=== PATIENT | female | born 1970 | race Caucasian/White ===

== ENCOUNTER 2023-11-26 14:19 | Outpatient (AMB) | payer MEDICARE, MEDICAID, SELFPAY ==
--- NOTE | 2023-11-26 14:31 | HO.NEPHOV ---
HPI HPI Comments History of Present Illness Details I had the delight of seeing Brigitte in follow-up. She has history of coronary artery disease( CT in October of 2015, status post bare metal stent) among multiple other medical issues. She has history of uncontrolled blood pressure in the past but her blood pressure has been well controlled on the current medication regimen now. She is not very strict with low-sodium diet. She currently denies chest pain, shortness of breath, pedal edema, proximal nocturnal dyspnea, orthopnea. Her renal functions have been normal. She denies any history of peripheral arterial symptoms. She claims to be compliant with her medications. She currently feels well. [facility] Medical History (Updated 11/27/23 @ 05:31 by Wei Conde MD) GERD (gastroesophageal reflux disease) Back pain Myofascial pain syndrome Overactive bladder Hyperlipemia Hypertension Presence of bare metal stent in coronary artery CAD (coronary artery disease) Surgical History (Updated 11/26/23 @ 14:39 by Nayla Ga MA) H/O section History of spinal surgery History of coronary artery stent placement Family History (Updated 11/26/23 @ 14:41 by Nayla Ga MA) Mother Diabetes Hypertension Sister Diabetes Father Hypertension Maternal Grandmother Breast cancer Social History (Updated 11/26/23 @ 14:38 by Nayla Ga MA) Alcohol intake: never Patient Tobacco Use Status: Current everyday Tobacco user Vital Signs 11/26/23 14:33 Height 5 ft 1 in Weight 123 lb 6 oz BMI 23.3 BP 124/70 Blood Pressure Location Lt brachial Position Sitting Pulse 75 Pulse Source Pulse Oximeter Pulse Oximetry (%) 95 Oxygen Delivery Method Room Air Physical Exam Vital Signs: Last Vital Signs Pulse 75 11/26/23 14:33 BP 124/70 11/26/23 14:33 Pulse Ox 95 11/26/23 14:33 Oxygen Delivery Method Room Air 11/26/23 14:33 BMI result Body Mass Index 23.3 Const General: comfortable and no acute distress Orientation/consciousness: patient oriented x3 HEENT Head: Yes normocephalic Mouth: Normal oral and palatal mucosa present Eyes EOM: EOMs intact bilaterally Neck Neck: Yes supple Resp Auscultation: clear to auscultation bilaterally Cardio Jugular venous distension: no JVD Rate: regular rate GI Palpation (GI): Soft to palpation Auscultation: normal bowel sounds General: Yes no CVA tenderness Back/Spine/Pelvis Back: no CVA tenderness Skin General skin exam: no rashes or lesions noted Neuro General: patient oriented x3 and moves all extremities Extrem General: Yes no pedal edema Assessment & Plan Assessment & Plan (1) Hypertension: Code(s): I10 - Essential (primary) hypertension Qualifiers: Hypertension type: primary hypertension Qualified Code(s): I10 - Essential (primary) hypertension Plan Brigitte has history of hypertension which was uncontrolled in the past. She is a diabetic. She had polypharmacy and her clonidine had been discontinued over time. She is currently on carvedilol, lisinopril as well as isosorbide. Her renal functions have been normal. His serum potassium is marginally up. She needs to be bit more rigid with her low-sodium diet. She follows up with her resourcing advisor. She can potentially be a great candidate for Farxiga or Jardiance. I did not make any medication changes today. I ordered follow-up blood work. Answered all questions. Orders: Orders Creatinine 11/26/23 I10 - Essential (primary) hypertension Electrolytes 11/26/23 I10 - Essential (primary) hypertension Blood Urea Nitrogen 11/26/23 I10 - Essential (primary) hypertension Protein Creatinine Ratio, Ur 11/26/23 I10 - Essential (primary) hypertension Coding Level of Care Code Est Pt Level 4 (53761) Diagnoses Primary hypertension I10 Hypertension type: primary hypertension Results Reviewed Nephrology Results: No Data to Display
[2023-11-26 14:33] VITALS: BP 124/70; PULSE 75; O2SAT 95; BMI 23.3
== END 2023-11-26 15:09 | disposition home or self-care (01) ==
PROVIDERS: PCP Family Medicine; Visit Provider Internal Medicine Nephrology
DX: I10 Essential (primary) hypertension (principal)
CPT/HCPCS: 99214

== ENCOUNTER → 2023-11-26 14:19 | Outpatient (BNVA) | payer MEDICARE, MEDICAID, SELFPAY | PROVIDERS: PCP Family Medicine; Visit Provider Internal Medicine Nephrology | DX: I10 Essential (primary) hypertension (principal) | CPT/HCPCS: 99212 ==

== ENCOUNTER 2024-05-24 09:15 | Outpatient (REF) | payer MEDICARE, MEDICAID, SELFPAY ==
[2024-05-24 18:05] LABS: Anion Gap 12 (12-20); Blood Urea Nitrogen 23 mg/dL (9-16); Carbon Dioxide 26 mmol/L (22-29); Chloride 108 mmol/L (96-108); Estimated Glomerular Filt Rate 57; Potassium 4.3 mmol/L (3.3-5.1); Sodium 142 mmol/L (135-145)
[2024-05-24 18:14] LABS: Creatinine Urine 100.93 mg/dL; Total Protein Urine Random < 7 mg/dL (<12)
== END 2024-05-24 09:16 | disposition home or self-care (01) ==
LOC: HO.HKASLDS 09:15
PROVIDERS: Visit Provider Internal Medicine Nephrology
DX: I10 Essential (primary) hypertension (principal)
CPT/HCPCS: 36415; 80051; 82565; 82570; 84156; 84520

== ENCOUNTER 2024-05-31 10:46 | Outpatient (AMB) | payer MEDICARE, MEDICAID, SELFPAY ==
[2024-05-31 11:16] VITALS: BP 102/60; PULSE 76; O2SAT 98; BMI 23.2
--- NOTE | 2024-05-31 11:16 | HO.NEPHOV_ITS ---
Vital Signs 05/31/24 11:16 Height 5 ft 1 in Weight 123 lb BMI 23.2 BP 102/60 Blood Pressure Location Lt brachial Position Sitting Pulse 76 Pulse Source Pulse Oximeter Pulse Oximetry (%) 98 Oxygen Delivery Method Room Air Intake Visit Reasons: 6M follow up/ Conf Collections Rep Required: No Accompanied by: Self / Same As Patient Allergies No Known Allergies Allergy (Unknown, Verified 05/31/24 11:18) HPI Comments Details: I had the delight of seeing Brigitte in follow-up. She has history of coronary artery disease( [place] in October of 2015, status post bare metal stent) among multiple other medical issues. She has history of uncontrolled blood pressure in the past but her blood pressure has been well controlled on the current medication regimen now. She is not very strict with low-sodium diet. She currently denies chest pain, shortness of breath, pedal edema, proximal nocturnal dyspnea, orthopnea. Her renal functions have been normal. She denies any history of peripheral arterial symptoms. She claims to be compliant with her medications. She currently feels well. [facility] Medical History (Updated 11/27/23 @ 05:31 by Wei Conde MD) GERD (gastroesophageal reflux disease) Back pain Myofascial pain syndrome Overactive bladder Hyperlipemia Hypertension Presence of bare metal stent in coronary artery CAD (coronary artery disease) Surgical History H/O section History of spinal surgery History of coronary artery stent placement Family History Mother Diabetes Hypertension Sister Diabetes Father Hypertension Maternal Grandmother Breast cancer Social History Alcohol intake: never Patient Tobacco Use Status: Current everyday Tobacco user Physical Exam Vital Signs: Last Vital Signs Pulse 76 05/31/24 11:16 BP 102/60 05/31/24 11:16 Pulse Ox 98 05/31/24 11:16 Oxygen Delivery Method Room Air 05/31/24 11:16 BMI result Body Mass Index 23.2 Const General: comfortable and no acute distress Orientation/consciousness: patient oriented x3 HEENT Head: Yes normocephalic Mouth: Normal oral and palatal mucosa present Eyes EOM: EOMs intact bilaterally Neck Neck: Yes supple Resp Auscultation: clear to auscultation bilaterally Cardio Jugular venous distension: no JVD Rate: regular rate GI Palpation (GI): Soft to palpation Auscultation: normal bowel sounds General: Yes no CVA tenderness Back/Spine/Pelvis Back: no CVA tenderness Skin General skin exam: no rashes or lesions noted Neuro General: patient oriented x3 and moves all extremities Extrem General: Yes no pedal edema Results Reviewed Nephrology Results: Sodium 142 mmol/L (135-145) 05/24/24 Potassium 4.3 mmol/L (3.3-5.1) 05/24/24 Chloride 108 mmol/L (96-108) 05/24/24 Carbon Dioxide 26 mmol/L (22-29) 05/24/24 BUN 23 mg/dL (9-16) H 05/24/24 Creatinine 1.02 mg/dL (0.5-1.4) 05/24/24 Urine Creatinine 100.93 mg/dL 05/24/24 Protein/Creatinin Ratio TNP 05/24/24 Assessment & Plan Assessment & Plan (1) Hypertension: Code(s): I10 - Essential (primary) hypertension Category: Medical Qualifiers: Hypertension type: primary hypertension Qualified Code(s): I10 - Essential (primary) hypertension Plan Brigitte has history of hypertension which was uncontrolled in the past. She is a diabetic. She is currently on carvedilol, lisinopril as well as isosorbide. Her renal functions have been normal. His serum potassium is normal. She is going to get ECHO. She follows up with her motor vehicle escort driver. She can potentially be a great candidate for [employer] or [employer]. I did not make any medication changes today. I ordered follow-up blood work. Answered all questions. Orders: Orders Protein Creatinine Ratio, Ur Today I10 - Essential (primary) hypertension Electrolytes Today I10 - Essential (primary) hypertension Creatinine Today I10 - Essential (primary) hypertension Blood Urea Nitrogen Today I10 - Essential (primary) hypertension Coding Level of Care Code Est Pt Level 4 (38897) Diagnoses Primary hypertension I10 Hypertension type: primary hypertension
== END 2024-05-31 11:50 | disposition home or self-care (01) ==
PROVIDERS: PCP Family Medicine; Visit Provider Internal Medicine Nephrology
DX: I10 Essential (primary) hypertension (principal)
CPT/HCPCS: 99214

== ENCOUNTER → 2024-05-31 10:46 | Outpatient (BNVA) | payer MEDICARE, MEDICAID, SELFPAY | PROVIDERS: PCP Family Medicine; Visit Provider Internal Medicine Nephrology | DX: I10 Essential (primary) hypertension (principal) | CPT/HCPCS: 99212 ==

== ENCOUNTER 2024-11-17 11:51 | Outpatient (AMB) | payer MEDICARE, MEDICAID, SELFPAY ==
--- NOTE | 2024-11-17 12:36 | HO.NEPHOV_ITS ---
Vital Signs 11/17/24 12:37 Height 5 ft 1 in Weight 121 lb 2 oz BMI 22.9 BP 110/70 Blood Pressure Location Lt brachial Position Sitting Pulse 64 Pulse Source Pulse Oximeter Pulse Oximetry (%) 98 Oxygen Delivery Method Room Air Intake Visit Reasons: 6M follow up-[facility] Supervisor Newspaper Deliveries Required: No Accompanied by: Self / Same As Patient Allergies No Known Allergies Allergy (Unknown, Verified 11/17/24 12:37) HPI Comments Details: I had the delight of seeing Brigitte in follow-up. She has history of coronary artery disease( CT in October of 2015, status post bare metal stent) among multiple other medical issues. She has history of uncontrolled blood pressure in the past but her blood pressure has been well controlled on the current medication regimen now. She is not very strict with low-sodium diet. She currently denies chest pain, shortness of breath, pedal edema, proximal nocturnal dyspnea, orthopnea. Her renal functions have been normal. She denies any history of peripheral arterial symptoms. She claims to be compliant with her medications. Her serum K has been higher than baseline in the last blood work. [facility] Medical History (Updated 11/17/24 @ 13:03 by Wei Conde MD) GERD (gastroesophageal reflux disease) Back pain Myofascial pain syndrome Overactive bladder Hyperlipemia Hypertension Presence of bare metal stent in coronary artery CAD (coronary artery disease) Surgical History H/O section History of spinal surgery History of coronary artery stent placement Family History Mother Diabetes Hypertension Sister Diabetes Father Hypertension Maternal Grandmother Breast cancer Social History Alcohol intake: never Patient Tobacco Use Status: Current everyday Tobacco user Review of Systems Const All systems reviewed & are unremarkable except as noted in HPI and below Physical Exam Vital Signs: Last Vital Signs Pulse 64 11/17/24 12:37 BP 110/70 11/17/24 12:37 Pulse Ox 98 11/17/24 12:37 Oxygen Delivery Method Room Air 11/17/24 12:37 BMI result Body Mass Index 22.9 Const General: comfortable and no acute distress Orientation/consciousness: patient oriented x3 HEENT Head: Yes normocephalic Mouth: Normal oral and palatal mucosa present Eyes EOM: EOMs intact bilaterally Neck Neck: Yes supple Resp Auscultation: clear to auscultation bilaterally Cardio Jugular venous distension: no JVD Rate: regular rate GI Palpation (GI): Soft to palpation Auscultation: normal bowel sounds General: Yes no CVA tenderness Back/Spine/Pelvis Back: no CVA tenderness Skin General skin exam: no rashes or lesions noted Neuro General: patient oriented x3 and moves all extremities Extrem General: Yes no pedal edema Results Reviewed Nephrology Results: Sodium 142 mmol/L (135-145) 05/24/24 Potassium 4.3 mmol/L (3.3-5.1) 05/24/24 Chloride 108 mmol/L (96-108) 05/24/24 Carbon Dioxide 26 mmol/L (22-29) 05/24/24 BUN 23 mg/dL (9-16) H 05/24/24 Creatinine 1.02 mg/dL (0.5-1.4) 05/24/24 Urine Creatinine 100.93 mg/dL 05/24/24 Protein/Creatinin Ratio TNP 05/24/24 Assessment & Plan Assessment & Plan (1) Hypertension: Code(s): I10 - Essential (primary) hypertension Category: Medical Qualifiers: Hypertension type: primary hypertension Qualified Code(s): I10 - Es sential (primary) hypertension (2) Hyperkalemia: Code(s): E87.5 - Hyperkalemia Category: Medical Plan Brigitte has history of hypertension which was uncontrolled in the past. She is a diabetic. She is currently on carvedilol, lisinopril as well as isosorbide. Her renal functions have been normal. His serum potassium is high. She is going to repeat it. She should remain on low K diet. If her serum K remains high, we may have to either back off on ACEI or add a K lowering medication. She follows up with her youth care professional. She can potentially be a great candidate for Farxiga or Jardiance. I did not make any medication changes today. Answered all questions Orders: Orders Creatinine 6 Weeks E87.5 - Hyperkalemia, I10 - Essential (primary) hypertension Blood Urea Nitrogen 6 Weeks E87.5 - Hyperkalemia, I10 - Essential (primary) hypertension Electrolytes 6 Weeks E87.5 - Hyperkalemia, I10 - Essential (primary) hypertension Coding Level of Care Code Est Pt Level 4 (85322) Diagnoses Primary hypertension I10 Hypertension type: primary hypertension Hyperkalemia E87.5
[2024-11-17 12:37] VITALS: BP 110/70; PULSE 64; O2SAT 98; BMI 22.9
== END 2024-11-17 13:09 | disposition home or self-care (01) ==
PROVIDERS: PCP Family Medicine; Visit Provider Internal Medicine Nephrology
DX: I10 Essential (primary) hypertension (principal); E87.5 Hyperkalemia
CPT/HCPCS: 99214

== ENCOUNTER → 2024-11-17 11:51 | Outpatient (BNVA) | payer MEDICARE, MEDICAID, SELFPAY | PROVIDERS: PCP Family Medicine; Visit Provider Internal Medicine Nephrology | DX: I10 Essential (primary) hypertension (principal); E87.5 Hyperkalemia | CPT/HCPCS: 99212 ==

== ENCOUNTER 2024-12-29 09:30 | Outpatient (REF) | payer MEDICARE, MEDICAID, SELFPAY ==
--- OUTSIDE RECORDS SUMMARY | 2024-12-29 10:00 | XMS_ITS | Clinical Summary ---
Author Organization [facility] Address [address] [place] [address] Care Team Providers Care Manager Er Name Role Phone Unavailable Primary Care Provider Unavailabl e Surgical History Surgery Date Site/Laterality Comments NECK SURGERY 2004, 2007 PROCEDURE: HISTORICAL NECK SURGERY; COMMENT: c spine surgery x2 for syringomyelia SECTION PROCEDURE: HISTORICAL DELIVERY; COMMENT: x2 COLONOSCOPY PROCEDURE: HISTORICAL COLONOSCOPY ESOPHAGOGASTRODUODENOSCOPY PROCEDURE: FL EGD TRANSORAL BIOPSY SINGLE/MULTIPLE; COMMENT: Formed with colonoscopy on July 19, 2021 COLONOSCOPY PROCEDURE: HISTORICAL COLONOSCOPY; COMMENT: Performed with the EGD on Medical History Medical History Date Comments Cervicalgia 05/26/2006 DX:Cervicalgia Lumbago 05/26/2006 DX:Lumbago Type II or unspecified type diabetes mellitus without mention of complication, not stated as uncontrolled 05/26/2006 DX:Type II or unspecified ty pe diabetes mellitus without mention of complication, not stated as uncontrolled Amblyopia, unspecified DX:Amblyo edson, unspecified; COMMENT: left Essential hypertension, benign 01/13/2013 D X:Essential hypertension, benign Acute myocardial infarction ([facility]/HCC) 01/08/2015 DX:Acute myocardial infarction (HCC); COMMENT: [facility] 01/02-01/04/2015; inferior STEMI, s/p BMS to 99% RCA lesion, ASA indefinitely, Plavix 1-12 months post-PCI Closed dislocation, lumbar vertebra 01/13/2011 DX:Closed dislocation, lumbar vertebra Diabetes mellitus type 2, co ntrolled (CMS/HCC) 05/26/2006 DX:Diabetes mellitus type 2, controlled ([facility]) Female stress incontinence 09/06/2010 DX:Fe male stress incontinence Lumbosacral radiculopathy 05/13/2011 DX:Lum bosacral radiculopathy; COMMENT: Left > right Pure hypercholesterolemia 08/04/2006 DX:Pur e hypercholesterolemia 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 Doran) Chronic pain managed by Dr. 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; COMMENT: [facility] pin management Family History Medical History Relation Name Comments Hyperlipidemia Father Hypertension Father Heart attack Maternal Grandfather Breast cancer Maternal Grandmother 70s Diabetes Maternal Grandmother 70s Glaucoma Maternal Grandmother 70s Stroke Maternal Grandmother 70s Cataracts Mother Hyperlipidemia Mother Hypertension Mother Hyperlipidemia Paternal Grandfather Blindness Neg Hx Macular degeneration Neg Hx Strabismus Neg Hx Relation Name Status Comments Father Maternal Grandfather Maternal Grandmother 70s Mother Paternal Grandfather Social History Tobacco Use Types Packs/Day Years Used Date Smoking Tobacco: Former Cigarettes 1 22.1 S tarted: 11/16/2002 Smokeless Tobacco: Never Alcohol Use Standard Drinks/Week Comments Yes 0 (1 standard drink = 0.6 oz pur e alcohol) Comments Unknown Sex and Gender Information Value Date Recorded Sex Assigned at Not on file Legal Sex Female 6:55 AM EST Gender Identity Not on file Sexual Orientation Not on file Obstetrics History Plan of Treatment Health Maintenance Due Date Last Done Comments Diabetes: Annual GFR (Glomerular Filtration Rate) 1971 Diabetes: Annual Foot Exam 1981 Diabetes: Annual Retina Eye Exam 1981 Hepatitis B Vaccines (1 of 3 - 19+ 3-dose series) 1990 Cervical Cancer Screening: HPV 1992 DTaP,Tdap,and Td Vaccines (9 - Td or Tdap) 05/13/2021 05/13/2011, 08/04/2006, 11/19/1991, Additional history exists Pneumococcal Vaccine: 50+ Years (2 of 2 - PCV) 2021 04/27/2007 Zoster Vaccines (1 of 2) 2021 Cholesterol Screening (Lipid Panel) 10/19/2022 Colorectal Cancer Screening: Colonoscopy 10/19/2022 Depression Screening 10/19/2022 HIV Screening 10/19/2022 Hepatitis C Screening 10/19/2022 Social Influencers of Health Screening 10/19/2022 Diabetes: Annual Urine Albumin-Creatinine Ratio (uACR) 10/23/2022 Diabetes: Blood Sugar Control Test (HGBA1C) 10/23/2022 Hypertension/CHF/CAD Annual BMP Blood Test 10/23/2022 Breast Cancer Screening 06/27/2023 06/27/20 21, 06/21/2020, 05/12/2019, Additional history exists COVID-19 Vaccine ( season) 2024 Influenza Vaccine (#1) 2024 , 09/27/2020, 09/28/2019, Additional history exists IPV Vaccines Completed 06/27/1976, 01/1972, 1971 MMR Vaccines Completed 05/09/1992, 12/1975, 07/24/1972, Additional history exists Pneumococcal Vaccine: Pediatrics (0 to 5 Years) and At-Risk Patients (6 to 64 Years) Aged Out 04/27/2007 No longer eligible based on patient's age to complete this topic HIB Vaccines Aged Out No longer eligi ble based on patient's age to complete this topic HPV Vaccines Aged Out No longer eligi ble based on patient's age to complete this topic Hepatitis A Vaccines Aged Out No long er eligible based on patient's age to complete this topic Meningococcal ACWY Vaccine Aged Out N o longer eligible based on patient's age to complete this topic Meningococcal B Vacine Aged Out No lo nger eligible based on patient's age to complete this topic RSV Immunization Patients Under 20 months Aged Out No longer eligible based on patient's age to complete this topic Varicella Vaccines Aged Out No longer eligible based on patient's age to complete this topic Procedures Procedure Name Priority Date/Time Associated Diagnosis Comments SCREENING MAMMOGRAPHY BI 2-VIEW BREAST INC CAD Routine 06/27/2021 10:35 AM EDT Encounter for screening mammogram for malignant neoplasm of breast from Last 3 Months or Most Recently Relevant to Health Maintenance Results * SCREENING MAMMOGRAPHY BI 2-VIEW BREAST INC CAD (06/27/2021 10:35 AM EDT) Anatomical Region Laterality Modality Radiographic Elizabeth ging 06/21/2020 5:32 PM EDT Narrative 06/27/2021 2:08 PM EDT This is a summary report. The complete report is available in the patient's medical record. If you cannot access the medical record, please contact the sending organization for a detailed fax or copy. Full field digital screening 2D and tomosynthesis mammography, reviewed with CAD and compared to previous. The breast tissue is heterogeneously dense, limiting sensitivity. No suspicious mass, architectural distortion or suspicious calcifications are identified. IMPRESSION: : Dense breast tissue, limiting the sensitivity of mammography. No mammographic evidence of malignancy. BIRADS 1-Negative; N. 5 year breast cancer risk assessment 0.9 % Lifetime breast cancer risk assessment 8.9 % Breast cancer risk category Low (<15%) Procedure Note Chanel Patterson MD - 11/04/2022 This is a summary report. The complete report is available in thepatient's medical record. If you cannot access the medical record, pleasecontact the sending organization for a detailed fax or copy. Full field digital screening 2D and tomosynthesis mammography, reviewedwith CAD and compared to previous. The breast tissue is heterogeneouslydense, limiting sensitivity. No suspicious mass, architectural distortionor suspicious calcifications are identified. IMPRESSION: : Dense breast tissue, limiting the sensitivity of mammography. Nomammographic evidence of malignancy. BIRADS 1-Negative; N. 5 year breast cancer risk assessment 0.9 % Lifetime breast cancer risk assessment 8.9 % Breast cancer risk category Low (<15%) Millicent Good MD IMG XR PROCEDURES Final Resu lt from Last 3 Months or Most Recently Relevant to Health Maintenance
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
[2024-12-29 17:54] LABS: Anion Gap 13 (12-20); Blood Urea Nitrogen 18 mg/dL (9-16); Carbon Dioxide 23 mmol/L (22-29); Chloride 109 mmol/L (96-108); Estimated Glomerular Filt Rate > 60; Potassium 4.1 mmol/L (3.3-5.1); Sodium 141 mmol/L (135-145)
== END 2024-12-29 09:31 | disposition home or self-care (01) ==
LOC: HO.HKASLDS 09:30
PROVIDERS: Visit Provider Internal Medicine Nephrology
DX: I10 Essential (primary) hypertension (principal); E87.5 Hyperkalemia
CPT/HCPCS: 36415; 80051; 82565; 84520

== ENCOUNTER 2025-02-23 09:48 | Outpatient (AMB) | payer MEDICARE, MEDICAID, SELFPAY ==
--- NOTE | 2025-02-23 09:58 | HO.NEPHOV_ITS ---
Vital Signs 02/23/25 09:59 Height 5 ft 1 in Weight 119 lb 6 oz BMI 22.6 BP 132/70 Blood Pressure Location Lt brachial Position Sitting Pulse 68 Pulse Source Pulse Oximeter Pulse Oximetry (%) 98 Oxygen Delivery Method Room Air Intake Visit Reasons: 3 mnts Drum Dyeing Machine Operator Required: No Accompanied by: Self / Same As Patient Allergies No Known Allergies Allergy (Unknown, Verified 02/23/25 09:59) HPI Comments Details: I had the delight of seeing Brigitte in follow-up. She has history of coronary artery disease( OR in October of 2015, status post bare metal stent) among multiple other medical issues. She has history of uncontrolled blood pressure in the past but her blood pressure has been well controlled on the current medication regimen now. She is not very strict with low-sodium diet. She currently denies chest pain, shortness of breath, pedal edema, proximal noc turnal dyspnea, orthopnea. Her renal functions have been normal. She denies any history of peripheral arterial symptoms. She claims to be compliant with her medications. [facility] Medical History (Updated 11/17/24 @ 13:03 by Wei Conde MD) GERD (gastroesophageal reflux disease) Back pain Myofascial pain syndrome Overactive bladder Hyperlipemia Hypertension Presence of bare metal stent in coronary artery CAD (coronary artery disease) Surgical History H/O section History of spinal surgery History of coronary artery stent placement Family History Mother Diabetes Hypertension Sister Diabetes Father Hypertension Maternal Grandmother Breast cancer Social History Alcohol intake: never Patient Tobacco Use Status: Current everyday Tobacco user Review of Systems Const All systems reviewed & are unremarkable except as noted in HPI and below Physical Exam Const General: comfortable and no acute distress Orientation/consciousness: patient oriented x3 HEENT Head: Yes normocephalic Mouth: Normal oral and palatal mucosa present Eyes EOM: EOMs intact bilaterally Neck Neck: Yes supple Resp Auscultation: clear to auscultation bilaterally Cardio Jugular venous distension: no JVD Rate: regular rate GI Palpation (GI): Soft to palpation Auscultation: normal bowel sounds General: Yes no CVA tenderness Back/Spine/Pelvis Back: no CVA tenderness Skin General skin exam: no rashes or lesions noted Neuro General: patient oriented x3 and moves all extremities Extrem General: Yes no pedal edema Results Reviewed Nephrology Results: Sodium 141 mmol/L (135-145) 12/29/24 Potassium 4.1 mmol/L (3.3-5.1) 12/29/24 Chloride 109 mmol/L (96-108) H 12/29/24 Carbon Dioxide 23 mmol/L (22-29) 12/29/24 BUN 18 mg/dL (9-16) H 12/29/24 Creatinine 0.85 mg/dL (0.5-1.4) 12/29/24 Urine Creatinine 100.93 mg/dL 05/24/24 Assessment & Plan Assessment & Plan (1) Hypertension: Code(s): I10 - Essential (primary) hypertension Category: Medical Qualifiers: Hypertension type: primary hypertension Qualified Code(s): I10 - Essential (primary) hypertension Plan Brigitte has history of hypertension which was uncontrolled in the past. She is a diabetic. She is currently on carvedilol, lisinopril as well as isosorbide. Her renal functions have been normal. His serum potassium is normal now. She should remain on low K diet. If her serum K remains high, we may have to either back off on ACEI or add a K lowering medication. She follows up with her customer account coordinator. She is a great candidate for [employer] [facility] [employer]. I did not make any medication changes today. Answered all questions Orders: Orders Creatinine 6 Months I10 - Essential (primary) hypertension Blood Urea Nitrogen 6 Months I10 - Essential (primary) hypertension Electrolytes 6 Months I10 - Essential (primary) hypertension Calcium 6 Months I10 - Essential (primary) hypertension Protein Creatinine Ratio, Ur 6 Months I10 - Essential (primary) hypertension Coding Level of Care Code Est Pt Level 4 (78781) Diagnoses Primary hypertension I10 Hypertension type: primary hypertension
[2025-02-23 09:59] VITALS: BP 132/70; PULSE 68; O2SAT 98; BMI 22.6
--- OUTSIDE RECORDS SUMMARY | 2025-02-23 11:09 | XMS_ITS | Clinical Summary ---
Author Organization [facility] Address [address] [place] [address] Phone Care Team Providers Care Shed Boss Name Role Phone Jose G Arias MD Primary Care Provider +1- [phone] Allergies No known active allergies Medications aspirin [...] Oswestry Disability Index: 42% severe disability and [place] Back Pain Disability Scale: 45 on 02/13/2021.Updated Oswestry Disability Index: 29% (13/45; moderate disability ) on 12/14/18; updated [place] Back Pain Disability Scale score: 43 on 12/14/18Updated Oswestry Disability Index: 30% ( moderate disability ) on 12/03/17; updated [place] Back Pain Disability Scale score: 34 on 12/03/17; updated [place]ck Disability Index: 44% on 12/03/17updated [place]estry Disability Index: 30% ( moderate disability ) on 11/12/16; updated [place] Back Pain Scale: 46 on 11/12/16; updated [...] 02/14/11[place] Back Pain Disability 66 on 02/14/11Initial [place] Back Pain Disability Scale: 80 on 12/25/2009 History of myocardial infarction 02/25/2022 02/25/2022 Hyperlipidemia 02/25/2022 02/25/2022 Pain of knee region 02/25/2022 02/26/20 22 Mechanical low back pain 02/25/202210/2022 Memory impairment 02/25/2022 02/25/2022 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 Immunizations Immunization Administration Dates Next Due Influenza, Unspecified 08/14/2021,09/27/2020 [...] - 19+ 3-dose series) 1990 Pneumococcal Vaccine: Peds ( 0 to 5 Years) and At-Risk Patients (6 to 49 Years) (2 of 2 - PCV) 04/27/2008 04/27/2007 Colorectal Cancer Screening: Annual FOBT 2020 Colorectal Cancer Screening: Colonoscopy 2020 Colorectal Cancer Screening: Sigmoidoscopy 2020 Diabetes: Hemoglobin A1C 05/06/2023 Diabetes: Ophthalmology Exam 05/06/2023 Diabetes: Pedal Pulse Checked 05/06/2023 Diabetes: Sensory Foot Exam 05/06/2023 Diabetes: Visual Foot Exam 05/06/2023 Influenza Vaccine (Season Ended) 2025 08/14/20 21, 09/27/2020 Insurance Medicare Medicaid [place] Medicare Medicaid [place] Care Teams Shed Boss Relationship Specialty Start Date End Date Jose G Arias MD [address] [place] [phone] PCP - General Family Medicine 02/25/22
--- OUTSIDE RECORDS SUMMARY | 2025-02-23 11:09 | XMS_ITS | Clinical Summary ---
Author Organization [employer] [facility] Address [address] [place] [address] Care Team Providers Care Shop Hand Name Role Phone Unavailable Primary Care Provider Unavailabl e Surgical History Surgery Date Site/Laterality Comments NECK SURGERY 2004, 2007 PROCEDURE: HISTORICAL NECK SURGERY; COMMENT: c spine surgery x2 for syringomyelia SECTION PROCEDURE: HISTORICAL DELIVERY; COMMENT: x2 COLONOSCOPY PROCEDURE: HISTORICAL COLONOSCOPY ESOPHAGOGASTRODUODENOSCOPY PROCEDURE: MS EGD TRANSORAL BIOPSY SINGLE/MULTIPLE; COMMENT: Formed with [...] D X:Essential hypertension, benign Acute myocardial infarction ([facility]/HCC V24, CMS/HCC V28) 01/08/2015 DX:Acute myocardial infarcti on ([facility]); COMMENT: [facility] 01/02-01/04/2015; inferior STEMI, s/p BMS to 99% RCA lesion, ASA indefinitely, Plavix 1-12 months post-PCI Closed dislocation, lumbar vertebra 01/13/2011 DX:Closed dislocation, lumbar vertebra Diabetes mellitus type 2, co ntrolled ([facility] V24, [facility] V28) 05/26/2006 DX:Diabetes mellitus type 2 , controlled ([facility]) Female stress incontinence 09/06/2010 DX:Fe male stress incontinence Lumbosacral radiculopathy 05/13/2011 DX:Lum bosacral radiculopathy; COMMENT: Left > right Pure hypercholesterolemia 08/04/2006 DX:Pur e hypercholesterolemia Syringomyelia ([facility] V24, [facility] V28) 05/26/2006 DX:Syringomyelia ([facility]); COMM ENT: Cervical syrinx, s/p surgery (Dr. Doran) Chronic pain managed by Dr. 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
== END 2025-02-23 10:10 | disposition home or self-care (01) ==
LOC: HO.HKAS 09:49
PROVIDERS: PCP Family Medicine; Visit Provider Internal Medicine Nephrology
DX: I10 Essential (primary) hypertension (principal)
CPT/HCPCS: 99214

== ENCOUNTER → 2025-02-23 09:48 | Outpatient (BNVA) | payer MEDICARE, MEDICAID, SELFPAY | PROVIDERS: PCP Family Medicine; Visit Provider Internal Medicine Nephrology | DX: I10 Essential (primary) hypertension (principal) | CPT/HCPCS: 99212 ==

== ENCOUNTER 2025-08-17 09:36 | Outpatient (REF) | payer MEDICARE, MEDICAID, SELFPAY ==
--- OUTSIDE RECORDS SUMMARY | 2025-08-17 10:44 | XMS_ITS | Clinical Summary ---
Author Organization [employer] [facility] Address [address] [place] [address] Care Team Providers Care Certified Master Safe Technician Name Role Phone Unavailable Primary Care Provider [...] D X:Essential hypertension, benign Acute myocardial infarction ([facility]/HCC V24, CMS/HCC V28) 01/08/2015 DX:Acute myocardial infarcti on ([facility]); COMMENT: [facility] 01/02-01/04/2015; inferior STEMI, s/p BMS to 99% RCA lesion, ASA indefinitely, Plavix 1-12 months post-PCI Closed dislocation, lumbar vertebra 01/13/2011 DX:Closed dislocation, lumbar vertebra Diabetes mellitus type 2, co ntrolled ([facility] V24, [facility] V28) 05/26/2006 DX:Diabetes mellitus type 2 , controlled (HCC) Female stress incontinence 09/06/2010 DX:Fe male stress incontinence Lumbosacral radiculopathy 05/13/2011 DX:Lum bosacral radiculopathy; COMMENT: Left > right Pure hypercholesterolemia 08/04/2006 DX:Pur e hypercholesterolemia Syringomyelia ([facility] V24, [facility] V28) 05/26/2006 DX:Syringomyelia ([facility]); COMM ENT: Cervical syrinx, s/p surgery (Dr. Doran) Chronic pain managed by Dr. 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; COMMENT: [facility] pin management Family History Medical History Relation [...] Used Date Smoking Tobacco: Former Cigarettes 1 22.8 S tarted: 11/16/2002 Smokeless Tobacco: Never Alcohol [...] Health Maintenance Due Date Last Done Comments Hepatitis B Vaccines (1 of 3 - 19+ 3-dose series) 1990 Cervical Cancer Screening: HPV 1992 DTaP,Tdap,and Td Vaccines (9 - Td or Tdap) 05/13/2021 05/13/2011, 08/04/2006, 11/19/1991, Additional history exists Pneumococcal Vaccine: 50+ Years (2 of 2 - PCV) 2021 04/27/2007 Zoster Vaccines (1 of 2) 2021 Breast Cancer Screening 06/27/2023 06/27/20 21, 06/21/2020, 05/12/2019, Additional history exists Depression Screening 11/16/2024 COVID-19 Vaccine ( season) 2025 Influenza Vaccine (#1) 2025 , 09/27/2020, 09/28/2019, Additional history exists RSV Immunization Adult Patients (1 - 1-dose 75+ series) 2046 IPV Vaccines Completed 06/27/1976, 01/1972, 1971 MMR Vaccines Completed 05/09/1992, 12/1975, 07/24/1972, Additional history exists HIB Vaccines Aged Out No longer eligi [...]
--- OUTSIDE RECORDS SUMMARY | 2025-08-17 10:44 | XMS_ITS | Clinical Summary ---
Author Organization [facility] Address [address] [place] [address] Phone Care Team Providers Care Horologist Apprentice Name Role Phone Jose G Arias MD Primary Care Provider +1- [phone] Allergies No known active allergies Medications aspirin [...] Oswestry Disability Index: 42% severe disability and [place] Back Pain Disability Scale: 45 on 02/13/2021.Updated Oswestry Disability Index: 29% (13/45; moderate disability ) on 12/14/18; updated [place] Back Pain Disability Scale score: 43 on 12/14/18Updated Oswestry Disability Index: 30% ( moderate disability ) on 12/03/17; updated [place] Pain Disability Scale score: 34 on 12/03/17; updated [place] Disability Index: 44% on 12/03/17updated Oswestry Disability Index: 30% ( moderate disability ) on 11/12/16; updated [place] Back Pain Scale: 46 on 11/12/16; updated [place] Disability Index: 28% on 11/12/16Updated Oswestry Disability Index: 22% ( moderate disability ) on 10/15/15; [place] Pain Disability Scale score: 20 on 10/15/15; initial [place] Disability Index: 20% ( minimal disability ) on 10/15/15.Updated Oswestry Disability Index: 26% moderate disability on 08/10/2014.Updated Oswestry Disability Index: 30% moderate disability on 06/13/2013.Updated Oswestry Disability Index: 42% severe disability on 06/08/2012.initial Oswestry Disabililty Questionnaire: 42 % ( severe disability') on 02/14/11[place] Back Pain Disability 66 on 02/14/11Initial [place] Back Pain Disability Scale: 80 on 12/25/2009 History of myocardial infarction 02/25/2022 02/25/2022 Hyperlipidemia 02/25/2022 02/25/2022 Pain of knee region 02/25/2022 02/26/20 Mechanical low back pain 02/25/202210/2022 Memory impairment 02/25/2022 02/25/2022 Central pain syndrome 02/25/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 Neck pain 02/25/2022 02/25/2022 Neuropathy 02/25/2022 02/25/2022 Overview (02/25/2022): One of the primary pain problems on presentation to [facility] 11/2009 One of the primary pain problems on presentation to [facility] 11/2009 Non-opioid analgesic adverse reaction 02/25/2022 [...] - 19+ 3-dose series) 1990 Pneumococcal Vaccine: 50+ Ye ars (2 of 2 - PCV) 04/27/2008 04/27/2007 Colorectal Cancer Screening: Annual FOBT 2020 Colorectal Cancer Screening: Colonoscopy 2020 Colorectal Cancer Screening: Sigmoidoscopy 2020 Diabetes: Hemoglobin A1C 05/06/2023 Diabetes: Ophthalmology Exam 05/06/2023 Diabetes: Pedal Pulse Checked 05/06/2023 Diabetes: Sensory Foot Exam 05/06/2023 Diabetes: Visual Foot Exam 05/06/2023 Influenza Vaccine (#1) 2025 08/14/2021, 2019 Pneumococcal Vaccine: Peds ( 0 to 5 Years) and At-Risk Patients (6 to 49 Years) Discontinued 04/27/2007 Insurance Medicare Medicaid [place] Medicare [place] Care Teams Horologist Apprentice Relationship Specialty Start Date End Date Jose G Arias MD [address] [place] [phone] PCP - General Family Medicine 02/25/22
[2025-08-17 13:52] LABS: Anion Gap 12 (12-20); Blood Urea Nitrogen 16 mg/dL (9-16); Calcium 9.2 mg/dL (8.4-10.2); Carbon Dioxide 24 mmol/L (22-29); Chloride 111 mmol/L (96-108); Estimated Glomerular Filt Rate > 60; Potassium 4.6 mmol/L (3.3-5.1); Sodium 142 mmol/L (135-145)
[2025-08-17 15:31] LABS: Total Protein Urine Random < 7 mg/dL (<12)
== END 2025-08-17 09:37 | disposition home or self-care (01) ==
LOC: HO.HKASLDS 09:36
PROVIDERS: PCP Family Medicine; Visit Provider Internal Medicine Nephrology
DX: I10 Essential (primary) hypertension (principal)
CPT/HCPCS: 36415; 80051; 82310; 82565; 82570; 84156; 84520

== ENCOUNTER 2025-10-24 09:49 | Outpatient (AMB) | payer MEDICARE, MEDICAID, SELFPAY ==
--- NOTE | 2025-10-24 10:01 | HO.NEPHOV_ITS ---
Vital Signs 10/24/25 10:02 Height 5 ft 1 in Weight 114 lb 6 oz BMI 21.6 BP 122/70 Blood Pressure Location Lt brachial Position Sitting Pulse 70 Pulse Source Pulse Oximeter Pulse Oximetry (%) 99 Oxygen Delivery Method Room Air Intake Visit Reasons: -[facility] Behavioral Health Professional Required: No Accompanied by: Self / Same As Patient Allergies No Known Allergies Allergy (Unknown, Verified 10/24/25 10:02) HPI Comments Details: I had the delight of seeing Brigitte in follow-up. She has history of coronary artery disease( ME in October of 2015, status post bare metal stent) among multiple other medical issues. She had history of uncontrolled blood pressure in the past but her blood pressure has been well controlled on the current medication regimen now. She is not very strict with low-sodium diet. She currently denies chest pain, shortness of breath, pedal edema, proximal noc turnal dyspnea, orthopnea. Her renal functions have been normal. She denies any history of peripheral arterial symptoms. She claims to be compliant with her medications. [facility] Medical History (Updated 11/17/24 @ 13:03 by Wei Conde MD) GERD (gastroesophageal reflux disease) Back pain Myofascial pain syndrome Overactive bladder Hyperlipemia Hypertension Presence of bare metal stent in coronary artery CAD (coronary artery disease) Surgical History H/O section History of spinal surgery History of coronary artery stent placement Family History Mother Diabetes Hypertension Sister Diabetes Father Hypertension Maternal Grandmother Breast cancer Social History Alcohol intake: never Patient Tobacco Use Status: Current everyday Tobacco user Review of Systems Const All systems reviewed & are unremarkable except as noted in HPI and below Physical Exam Vital Signs: Last Vital Signs Pulse 70 10/24/25 10:02 BP 122/70 10/24/25 10:02 Pulse Ox 99 10/24/25 10:02 Oxygen Delivery Method Room Air 10/24/25 10:02 BMI result Body Mass Index 21.6 Const General: comfortable and no acute distress Orientation/consciousness: patient oriented x3 HEENT Head: Yes normocephalic Mouth: Normal oral and palatal mucosa present Eyes EOM: EOMs intact bilaterally Neck Neck: Yes supple Resp Auscultation: clear to auscultation bilaterally Cardio Jugular venous distension: no JVD Rate: regular rate GI Palpation (GI): Soft to palpation Auscultation: normal bowel sounds General: Yes no CVA tenderness Back/Spine/Pelvis Back: no CVA tenderness Skin General skin exam: no rashes or lesions noted Neuro General: patient oriented x3 and moves all extremities Extrem General: Yes no pedal edema Results Reviewed Nephrology Results: Sodium, (135-145) 142 mmol/L 08/17/25 Potassium, (3.3-5.1) 4.6 mmol/L 08/17/25 Chloride, (96-108) 111 mmol/L H 08/17/25 Carbon Dioxide, (22-29) 24 mmol/L 08/17/25 BUN, (9-16) 16 mg/dL 08/17/25 Creatinine, (0.5-1.4) 0.89 mg/dL 08/17/25 Calcium, (8.4-10.2) 9.2 mg/dL 08/17/25 Urine Creatinine 35.42 mg/dL 08/17/25 Protein/Creatinin Ratio TNP 08/17/25 Assessment & Plan Assessment & Plan (1) Hypertension: Code(s): I10 - Essential (primary) hypertension Category: Medical Qualifiers: Hypertension type: primary hypertension Qualified Code(s): I10 - Essential (primary) hypertension Plan Brigitte has history of hypertension which was uncontrolled in the past. She is a diabetic. She is currently on carvedilol, lisinopril as well as isosorbide. Her renal functions have been normal. His serum potassium is normal now. She follows up with her gamma ray operator. I did not make any medication changes today. Answered all questions Orders: Orders Protein Creatinine Ratio, Ur 6 Months I10 - Essential (primary) hypertension Blood Urea Nitrogen 6 Months I10 - Essential (primary) hypertension Electrolytes 6 Months I10 - Essential (primary) hypertension Creatinine 6 Months I10 - Essential (primary) hypertension Coding Level of Care Code Est Pt Level 4 (79197) Diagnoses Primary hypertension I10 Hypertension type: primary hypertension
[2025-10-24 10:02] VITALS: BP 122/70; PULSE 70; O2SAT 99; BMI 21.6
== END 2025-10-24 10:21 | disposition home or self-care (01) ==
PROVIDERS: PCP Family Medicine; Visit Provider Internal Medicine Nephrology
DX: I10 Essential (primary) hypertension (principal)
CPT/HCPCS: 99214

== ENCOUNTER → 2025-10-24 09:49 | Outpatient (BNVA) | payer MEDICARE, MEDICAID, SELFPAY | PROVIDERS: PCP Family Medicine; Visit Provider Internal Medicine Nephrology | DX: I10 Essential (primary) hypertension (principal); E11.9 Type 2 diabetes mellitus without complications | CPT/HCPCS: 99212 ==